=== PATIENT | female | born 1995 | race Hispanic/Latino ===

== ENCOUNTER 2020-07-06 19:51 | Emergency (ER) | payer BC, OTHER ==
[2020-07-06 22:36] LABS: #Eosinphils 0.2 thou/uL (0.0-0.7); #Lymphocytes 2.9 thou/uL (1.20-3.40); #Monocytes 0.7 thou/uL (0.11-0.59); #Neutrophils 6.4 thou/uL (1.40-6.50); %Basophils 0.4 % (0.0-1.0); %Eosinophils 2.2 % (0.0-10.0); %Monocytes 6.8 % (0.0-10.0); %Neutrophils 62.6 % (42.0-75.0); Mean Corpuscular HGB CONC 35.8 g/dL (32.0-36.0); Mean Corpuscular Hemoglobin 32.4 pg (27.0-31.0); Mean Corpuscular Volume 90.3 fL (78.0-98.0); Mean Platelet Volume 6.9 fL (7.4-10.4); Platelet Count 297 thou/uL (130-400); RBC Distribution Width 11.3 % (11.5-14.5); Red Blood Cell (RBC) Count 3.71 mill/uL (4.20-5.40); White Blood Cell (WBC) Count 10.2 thou/uL (4.8-10.8)
--- NOTE | 2020-07-06 22:54 | ULT ---
ULTRASOUND OBSTETRICAL COMPLETE: DATE: 07/06/2020 HISTORY: 25-year-old female in second trimester presents with right lower quadrant abdomina l pain. FINDINGS: Right ovary is 4 x 3.5 x 2.5 cm, with blood flow demonstrated by Doppler. No right-sided ovarian cyst. Appendix not visualized. number: gruber lie: Transverse, with head to maternal left. Maternal cervix: 4.2 cm. Closed. Placenta: Anterior and low-lying. There is a small volume of material of intermediate to low [place] between the inferior tip of the placenta and the internal cervical os. This material is the only barrier to a placenta previa. It is uncertain whether this represents mucus or small amount of b lood clot/hematoma. Amniotic fluid volume: Subjectively normal heart rate: 152 bpm The following anatomy is visualized, with no evidence of anomalies: T spine, sacrum, bladder, bilateral kidneys, stomach, and cord insertion. biometry: Biparietal diameter (BPD): 3.8 cm 17 w 3 d Head circumference (HC): 13.7 cm 17 w 1 d Abdominal circumference (AC): 12.3 cm 18 w 0 d Femur length (FL): 2.4 cm 17 w 2 d Average ultrasound age (AUA): 17 w 3 d Estimated date of delivery (LEX): 12/11/2020 Estimated weight (EFW): 199 g +/- 29 g IMPRESSION: 1) Live 2nd trimester intrauterine gestation. 2) Estimated gestational age of 17 weeks, 3 days 3) transverse lie. 4) low-lying placenta and possible placenta previa. There is a small amount of material of unknown et iology, perhaps a small amount of blood clot or mucous, between the placenta and the internal cervical os. Follow-up ultrasound is recommended later in second trimester.
== END 2020-07-06 22:56 | disposition home or self-care (01) ==
LOC: ERS 19:51
DX: O99.89 Other specified diseases and conditions complicating pregnancy, childbirth and the puerperium (principal); R10.31 Right lower quadrant pain; Z3A.17 17 weeks gestation of pregnancy
CPT/HCPCS: 36415; 76815